=== PATIENT | male | born 1950 | race Caucasian/White ===

== ENCOUNTER 2016-10-31 19:14 | Emergency (ER) | payer BC ==
[~2016-10-31] VITALS: Ht 180.3 cm; Wt 86.2 kg
[~2016-10-31 19:14] MED LIST: ASPIRIN CHEWABL81 MG PO; CLARITIN10 MG PO; Carafate1 GM PO; PERCOCET 325 MG1 TA7 PO; PRILOSEC20 MG PO
[2016-10-31] MEDS ORDERED: LISINOPRIL10 M1 PO (19:20)
[2016-10-31] MEDS ORDERED: NAPROSYN500 MG PO (19:23)
== END 2016-10-31 20:35 | disposition home or self-care (01) ==
LOC: ED 19:14
DX: S90.121A Contusion of right lesser toe(s) without damage to nail, initial encounter (principal); R03.0 Elevated blood-pressure reading, without diagnosis of hypertension; K21.9 Gastro-esophageal reflux disease without esophagitis; E78.5 Hyperlipidemia, unspecified; Z87.442 Personal history of urinary calculi; Z88.0 Allergy status to penicillin; Z79.82 Long term (current) use of aspirin; W22.8XXA Striking against or struck by other objects, initial encounter; Y93.89 Activity, other specified; Y92.9 Unspecified place or not applicable; Y99.9 Unspecified external cause status

== ENCOUNTER → 2018-08-02 | Outpatient (CLI) | payer OTHER ==
[~2018-08-02] MED LIST changes: +LISINOPRIL10 M1 PO; +NAPROSYN500 MG PO
[2018-08-02 08:23] LABS: HEMATOCRIT 43.6 % (42.0-52.0); HEMOGLOBIN 14.2 g/dl (14.0-18.0); MEAN CELL VOLUME 89.9 fl (80.0-94.0); MEAN CORPUSCULAR HGB 29.3 pg (27.0-31.0); MEAN CORPUSCULAR HGB CONC 32.6 g/dl (33.0-37.0); MEAN PLATELET VOLUME 9.3 fl (9.6-12.3); RED BLOOD COUNT 4.85 10*6/uL (4.50-5.90); RED CELL DISTRI WIDTH 13.2 % (0-14.5); WHITE BLOOD COUNT 7.5 10*3/uL (4.8-10.8)
[2018-08-02 08:36] LABS: ALBUMIN 3.7 gm/dl (3.1-4.5); BUN 15 mg/dl (7-24); CHLORIDE 104 mmol/L (98-107); CHOLESTEROL 224 mg/dL (<200); CREATININE 0.97 mg/dL (0.70-1.30); POTASSIUM 4.1 mmol/L (3.5-5.1); SGOT/AST 23 IU/L (3-35); SGPT/ALT 28 U/L (12-78); SODIUM 139 mmol/L (136-145); TOTAL PROTEIN 8.1 gm/dL (6.4-8.2); TRIGLYCERIDES 60 mg/dl (<150); VLDL CHOLESTEROL 12 mg/dL (6-40)
[2018-08-02 08:37] LABS: ALKALINE PHOSPHATASE 106 U/L (45-117); HDL CHOLESTEROL 45 mg/dl (40-60); LDL CHOLESTEROL 167 mg/dL (9-159)
== END | disposition home or self-care (01) ==
LOC: LAB 07:25
PROVIDERS: Family Medicine
DX: E78.00 Pure hypercholesterolemia, unspecified (principal); E55.9 Vitamin D deficiency, unspecified; R53.83 Other fatigue

== ENCOUNTER 2018-12-23 13:35 | Emergency (ER) | payer OTHER ==
[~2018-12-23] VITALS: Ht 180.3 cm; Wt 88.5 kg
[2018-12-23] MEDS ORDERED: OMNICEF300 MG PO (16:24)
[2018-12-23] MEDS ORDERED: TESSALON PERLE100 M1 PO (16:25)
== END 2018-12-23 16:30 | disposition home or self-care (01) ==
LOC: ED 13:35
DX: J32.9 Chronic sinusitis, unspecified (principal); J06.9 Acute upper respiratory infection, unspecified; E78.5 Hyperlipidemia, unspecified; K21.9 Gastro-esophageal reflux disease without esophagitis; Z88.0 Allergy status to penicillin; Z79.899 Other long term (current) drug therapy; Z87.442 Personal history of urinary calculi

== ENCOUNTER 2019-05-01 09:38 | Emergency (ER) | payer OTHER ==
[~2019-05-01] VITALS: Ht 177.8 cm; Wt 88.5 kg
[~2019-05-01 09:38] MED LIST changes: +OMNICEF300 MG PO; +TESSALON PERLE100 M1 PO
[2019-05-01 10:28] LABS: BASO % 0.3 % (0.0-1.0); EOS # 0.1 10*3/uL (0.0-0.4); EOS % 0.5 % (1.0-4.0); HEMATOCRIT 44.7 % (42.0-52.0); HEMOGLOBIN 14.8 g/dl (14.0-18.0); LYMPH # 0.5 10*3/uL (1.3-4.4); MEAN CELL VOLUME 90.3 fl (80.0-94.0); MEAN CORPUSCULAR HGB 29.9 pg (27.0-31.0); MEAN CORPUSCULAR HGB CONC 33.1 g/dl (33.0-37.0); MEAN PLATELET VOLUME 9.2 fl (9.6-12.3); MONO # 0.4 10*3/uL (0.1-1.0); NEUT # 8.9 10*3/uL (2.3-7.9); PLATELET COUNT AUTOMATED 225 10*3/uL (130-400); RED BLOOD COUNT 4.95 10*6/uL (4.50-5.90); RED CELL DISTRI WIDTH 13.3 % (0-14.5); WHITE BLOOD COUNT 9.9 10*3/uL (4.8-10.8)
[2019-05-01 10:39] LABS: ACT PARTIAL THROMBO TIME 24.5 SECONDS (20.0-32.1); INTERNATIONAL NORM RATIO 0.9 (2.0-3.5)
[2019-05-01 10:45] LABS: ALBUMIN 3.9 gm/dl (3.1-4.5); ALKALINE PHOSPHATASE 96 U/L (45-117); BUN 13 mg/dl (7-24); CHLORIDE 109 mmol/L (98-107); CREATININE 0.96 mg/dL (0.70-1.30); LIPASE 153 U/L (73-393); SGOT/AST 17 IU/L (3-35); SGPT/ALT 30 U/L (12-78); SODIUM 141 mmol/L (136-145); TOTAL PROTEIN 7.5 gm/dL (6.4-8.2)
[2019-05-01 10:48] LABS: TROPONIN I < 0.015 ng/ml (<0.045)
[2019-05-01 10:51] LABS: BILIRUBIN NEGATIVE (NEGATIVE); BLOOD NEGATIVE (NEGATIVE); CLARITY SL CLOUDY (CLEAR); COLOR YELLOW (YELLOW); GLUCOSE NEGATIVE (NEGATIVE); KETONE NEGATIVE (NEGATIVE); LEUKO ESTERASE NEGATIVE (NEGATIVE); NITRITE NEGATIVE (NEGATIVE); PH 5.5 (5.0-9.0); SPECIFIC GRAVITY >= 1.030 (1.005-1.030); UROBILINOGEN 0.2 E.U./dl (0.2-1.0)
[2019-05-01 11:05] LABS: BACTERIA 2+
[2019-05-01] MEDS ORDERED: ZOFRAN4 MG PO (11:42)
[2019-05-01] MEDS ORDERED: ZANTAC 150150 MG PO (11:42)
== END 2019-05-01 12:00 | disposition home or self-care (01) ==
LOC: ED 09:38
PROVIDERS: Nurse Practitioner Family
DX: B34.9 Viral infection, unspecified (principal); R11.2 Nausea with vomiting, unspecified; I10 Essential (primary) hypertension; E78.5 Hyperlipidemia, unspecified; Z87.442 Personal history of urinary calculi; Z88.0 Allergy status to penicillin; Z79.899 Other long term (current) drug therapy; Z79.2 Long term (current) use of antibiotics

== ENCOUNTER 2019-05-20 11:03 | Emergency (ER) | payer OTHER ==
[~2019-05-20] VITALS: Ht 180.3 cm; Wt 88.5 kg
[~2019-05-20 11:03] MED LIST changes: +ZANTAC 150150 MG PO; +ZOFRAN4 MG PO
== END 2019-05-20 13:54 | disposition home or self-care (01) ==
LOC: ED 11:03
DX: S01.01XA Laceration without foreign body of scalp, initial encounter (principal); K21.9 Gastro-esophageal reflux disease without esophagitis; Z79.899 Other long term (current) drug therapy; Z88.0 Allergy status to penicillin; W22.8XXA Striking against or struck by other objects, initial encounter; Y93.89 Activity, other specified; Y92.89 Other specified places as the place of occurrence of the external cause; Y99.8 Other external cause status

== ENCOUNTER 2019-07-05 12:15 | Emergency (ER) | payer OTHER ==
[~2019-07-05] VITALS: Ht 182.8 cm; Wt 88.5 kg
[2019-07-05 13:10] LABS: HEMATOCRIT 44.7 % (42.0-52.0); HEMOGLOBIN 14.9 g/dl (14.0-18.0); MEAN CELL VOLUME 90.5 fl (80.0-94.0); MEAN CORPUSCULAR HGB 30.2 pg (27.0-31.0); MEAN CORPUSCULAR HGB CONC 33.3 g/dl (33.0-37.0); MEAN PLATELET VOLUME 8.9 fl (9.6-12.3); PLATELET COUNT AUTOMATED 188 10*3/uL (130-400); RED BLOOD COUNT 4.94 10*6/uL (4.50-5.90); RED CELL DISTRI WIDTH 13.4 % (0-14.5); WHITE BLOOD COUNT 9.6 10*3/uL (4.8-10.8)
[2019-07-05 13:24] LABS: ALBUMIN 3.8 gm/dl (3.1-4.5); ALKALINE PHOSPHATASE 95 U/L (45-117); BUN 17 mg/dl (7-24); CHLORIDE 106 mmol/L (98-107); CREATININE 0.96 mg/dL (0.70-1.30); POTASSIUM 4.2 mmol/L (3.5-5.1); SGOT/AST 22 IU/L (3-35); SGPT/ALT 30 U/L (12-78); SODIUM 137 mmol/L (136-145); TOTAL PROTEIN 7.5 gm/dL (6.4-8.2)
[2019-07-05 13:35] LABS: PLATELET SUFFICIENCY NORMAL (NORMAL); TOTAL CELLS COUNTED 100 #CELLS
[2019-07-05 14:08] LABS: CLARITY CLEAR (CLEAR); COLOR YELLOW (YELLOW); GLUCOSE NEGATIVE (NEGATIVE)
[2019-07-05 14:09] LABS: BILIRUBIN NEGATIVE (NEGATIVE); BLOOD 1+ (NEGATIVE); KETONE NEGATIVE (NEGATIVE); LEUKO ESTERASE NEGATIVE (NEGATIVE); NITRITE NEGATIVE (NEGATIVE); SPECIFIC GRAVITY 1.025 (1.005-1.030); UROBILINOGEN 0.2 E.U./dl (0.2-1.0)
[2019-07-05 14:10] LABS: BACTERIA TRACE; EPITHELIAL CELLS 0-2; RBC 0-2 rbc/hpf (0-2); WBC 0-2 wbc/hpf (0-5)
== END 2019-07-05 15:33 | disposition home or self-care (01) ==
LOC: ED 12:15
PROVIDERS: Nurse Practitioner Family
DX: B34.9 Viral infection, unspecified (principal); R10.13 Epigastric pain; K21.9 Gastro-esophageal reflux disease without esophagitis; Z88.0 Allergy status to penicillin; Z79.899 Other long term (current) drug therapy

== ENCOUNTER 2020-04-09 17:55 | Observation (INO) | payer OTHER ==
[~2020-04-09] VITALS: Ht 180.3 cm; Wt 88.5 kg
[2020-04-09 18:03] VITALS: BP 173/94
[2020-04-09 18:18] VITALS: BP 162/86
[2020-04-09 18:29] LABS: BASO # 0.1 10*3/uL (0.0-0.1); BASO % 0.8 % (0.0-1.0); EOS # 0.2 10*3/uL (0.0-0.4); EOS % 3.7 % (1.0-4.0); LYMPH % 30.9 % (27.0-41.0); MEAN CELL VOLUME 90.5 fl (80.0-94.0); MEAN CORPUSCULAR HGB 29.4 pg (27.0-31.0); MEAN CORPUSCULAR HGB CONC 32.4 g/dl (33.0-37.0); MONO # 0.5 10*3/uL (0.1-1.0); MONO % 7.6 % (3.0-9.0); NEUT # 3.7 10*3/uL (2.3-7.9); NEUT % 56.8 % (47.0-73.0); PLATELET COUNT AUTOMATED 201 10*3/uL (130-400); RED BLOOD COUNT 4.53 10*6/uL (4.50-5.90); RED CELL DISTRI WIDTH 13.2 % (0-14.5); WHITE BLOOD COUNT 6.5 10*3/uL (4.8-10.8)
[2020-04-09 18:46] LABS: ALBUMIN 3.6 gm/dl (3.1-4.5); ALKALINE PHOSPHATASE 90 U/L (45-117); BUN 12 mg/dl (7-24); CHLORIDE 108 mmol/L (98-107); CREATININE 0.89 mg/dL (0.70-1.30); POTASSIUM 3.8 mmol/L (3.5-5.1); SGOT/AST 21 IU/L (3-35); SGPT/ALT 24 U/L (12-78); SODIUM 142 mmol/L (136-145)
[2020-04-09 18:47] LABS: TROPONIN I < 0.015 ng/ml (<0.045)
[2020-04-09 19:07] VITALS: BP 158/82
--- NOTE | 2020-04-09 19:18 | NUR ---
PT IS RESTING IN BED WITH CALL LIGHT IN REACH. PT IS WITHOUT DISTRESS.
[2020-04-09] MEDS ORDERED: OMEPRAZOLE MAGN20 MG PO (20:12)
[2020-04-09 21:00] VITALS: BP 144/70
[2020-04-10 00:13] VITALS: BP 158/96
--- NOTE | 2020-04-10 03:30 | NUR ---
PT C/O HIS CHEST BURNING AT THIS TIME. MONITOR REMAINS SINUS RHYTHM MD COELHO AWARE. OSCAR CRUZ RN.
[2020-04-10 04:15] VITALS: BP 152/96
--- NOTE | 2020-04-10 04:17 | NUR ---
PT STATES THE PAIN IS GONE AT THIS TIME STATES HE IS PAIN FREE. OSCAR CRUZ RN.
[2020-04-10 08:40] VITALS: BP 163/98
--- NOTE | 2020-04-10 08:40 | NUR ---
RESTING IN NO DISTRESS. PAIN CONTROLLED AT THIS TIME.
[2020-04-10] MEDS ORDERED: TOPROL XL25 MG PO (09:01)
[2020-04-10] MEDS ORDERED: ZOCOR10 MG PO (09:01)
[2020-04-10 09:09] LABS: CHOLESTEROL 237 mg/dL (<200); HDL CHOLESTEROL 67 mg/dl (40-60); LDL CHOLESTEROL 147 mg/dL (9-159); TRIGLYCERIDES 114 mg/dl (<150); VLDL CHOLESTEROL 23 mg/dL (6-40)
--- NOTE | 2020-04-10 10:40 | NUR ---
PT OUT OF DEPARTMENT FOR STRESS TEST.
--- NOTE | 2020-04-10 12:00 | NUR ---
INFORMED CONSENT SIGNED FOR CARDIOLYTE STRESS TEST WITH DR. ANN. RESTING EKG NSR, HR 76, BP 140/84. COMPLETED 6:00 OF A STANDARD KISHORE PROTOCOL COMPLETING 3:00 STAGE II, 2. MPH/12% GRADE. PEAK HEART RATE OF 143 ACIEVED WHICH IS 93% PREDICTED MAXIMUM AND A PEAK BP OF 182/74. TEST TERMINATED D/T FATIGUE. PVC'S NOTED WITH NON DIAGNOSTIC ST CHANGES. HAS AN AVERAGE EXERCISE TOLERANCE. LAST RECOVERY HR 100, BP 162/88. WAITING NUCLAR SCANNING IN STABLE CONDITION.
--- NOTE | 2020-04-10 14:05 | NUR ---
NEGATIVE STRESS TESTS RESULTS DISCUSSED WITH DR JOHNSON. HE CAN BE DISCHARGED HOME AT THIS TIME.
== END 2020-04-10 17:35 | disposition home or self-care (01) ==
LOC: ED 17:55 → EDHOLD 19:59 → 4E 22:14 → EDHOLD 22:14 → 4E 22:14 → EDHOLD 04-10 17:35
PROVIDERS: Nurse Practitioner; ADMIT Internal Medicine; ATTEND Internal Medicine
DX: R07.89 Other chest pain (principal); I10 Essential (primary) hypertension; E78.5 Hyperlipidemia, unspecified

== ENCOUNTER 2020-10-14 13:25 | Emergency (ER) | payer OTHER ==
[~2020-10-14 13:25] MED LIST changes: +OMEPRAZOLE MAGN20 MG PO; +TOPROL XL25 MG PO; +ZOCOR10 MG PO
[2020-10-14] MEDS ORDERED: CEPHALEXIN500 M1 PO (16:36)
== END 2020-10-14 16:36 | disposition home or self-care (01) ==
LOC: ED 13:25
DX: S01.01XA Laceration without foreign body of scalp, initial encounter (principal); Z88.0 Allergy status to penicillin; Z79.899 Other long term (current) drug therapy; Z98.890 Other specified postprocedural states; W22.8XXA Striking against or struck by other objects, initial encounter; Y93.89 Activity, other specified; Y92.89 Other specified places as the place of occurrence of the external cause; Y99.8 Other external cause status

== ENCOUNTER 2021-03-31 14:43 | Emergency (ER) | payer OTHER ==
[~2021-03-31] VITALS: Ht 180.3 cm; Wt 88.5 kg
[~2021-03-31 14:43] MED LIST changes: +CEPHALEXIN500 M1 PO
== END 2021-03-31 22:41 | disposition home or self-care (01) ==
LOC: ED 14:43
DX: U07.1 COVID-19 (principal); Z88.0 Allergy status to penicillin; Z79.899 Other long term (current) drug therapy

== ENCOUNTER → 2022-03-24 | Outpatient (CLI) | payer OTHER | LOC: RAD 17:19 | PROVIDERS: ATTEND Chiropractor | DX: M50.323 Other cervical disc degeneration at C6-C7 level (principal); M50.322 Other cervical disc degeneration at C5-C6 level ==

== ENCOUNTER → 2022-05-25 | Outpatient (CLI) | payer OTHER ==
[2022-05-25 14:56] LABS: HEMATOCRIT 42.3 % (42.0-52.0); MEAN CELL VOLUME 89.4 fl (80.0-94.0); MEAN CORPUSCULAR HGB CONC 33.6 g/dl (33.0-37.0); MEAN PLATELET VOLUME 9.7 fl (9.6-12.3); RED BLOOD COUNT 4.73 10*6/uL (4.50-5.90); RED CELL DISTRI WIDTH 13.3 % (0-14.5); WHITE BLOOD COUNT 7.4 10*3/uL (4.8-10.8)
[2022-05-25 15:22] LABS: ALKALINE PHOSPHATASE 103 U/L (46-116); BUN 11 mg/dl (9-23); CHLORIDE 101 mmol/L (98-107); CHOLESTEROL 214 mg/dL (<200); LDL CHOLESTEROL 139 mg/dL (9-159); POTASSIUM 4.2 mmol/L (3.4-5.1); SGPT/ALT 14 U/L (10-49); TOTAL PROTEIN 7.3 gm/dL (6.0-8.0); TRIGLYCERIDES 90 mg/dl (<150)
== END | disposition home or self-care (01) ==
LOC: LAB 12:48
PROVIDERS: ATTEND Family Medicine
DX: M47.814 Spondylosis without myelopathy or radiculopathy, thoracic region (principal); M85.88 Other specified disorders of bone density and structure, other site; J18.9 Pneumonia, unspecified organism; R50.9 Fever, unspecified; I10 Essential (primary) hypertension; E78.00 Pure hypercholesterolemia, unspecified

== ENCOUNTER 2023-01-25 12:43 | Emergency (ER) | payer OTHER ==
[~2023-01-25] VITALS: Ht 180.3 cm; Wt 86.2 kg
[2023-01-25] MEDS ORDERED: VIBRAMYCIN100 MG PO (14:28)
== END 2023-01-25 14:34 | disposition home or self-care (01) ==
LOC: ED 12:43
DX: S61.011A Laceration without foreign body of right thumb without damage to nail, initial encounter (principal); Z88.0 Allergy status to penicillin; Z98.890 Other specified postprocedural states; Z87.442 Personal history of urinary calculi; W27.0XXA Contact with workbench tool, initial encounter; Y93.89 Activity, other specified; Y92.89 Other specified places as the place of occurrence of the external cause; Y99.8 Other external cause status

== ENCOUNTER 2023-07-16 16:15 | Emergency (ER) | payer OTHER ==
[~2023-07-16] VITALS: Ht 180.3 cm; Wt 86.2 kg
[~2023-07-16 16:15] MED LIST changes: +VIBRAMYCIN100 MG PO
[2023-07-16] MEDS ORDERED: AVPAK AZITHROM250 M1 PO (16:33)
== END 2023-07-16 16:37 | disposition home or self-care (01) ==
LOC: ED 16:15
DX: J32.9 Chronic sinusitis, unspecified (principal); I10 Essential (primary) hypertension; K21.9 Gastro-esophageal reflux disease without esophagitis; E78.5 Hyperlipidemia, unspecified; Z88.0 Allergy status to penicillin; Z98.890 Other specified postprocedural states

== ENCOUNTER 2023-09-01 14:21 | Emergency (ER) | payer MEDICARE ==
[~2023-09-01] VITALS: Wt 86.2 kg
[~2023-09-01 14:21] MED LIST changes: +AVPAK AZITHROM250 M1 PO
[2023-09-01] MEDS ORDERED: Lidocaine Hydrochloride 2% 10 ML AMP SC ONE (14:55)
[2023-09-01] MEDS ORDERED: Bacitracin Zinc 14 GM TUBE T ONE (14:55)
[2023-09-01] MEDS ORDERED: CEPHALEXIN500 M1 PO (16:34)
[2023-09-01] MEDS ORDERED: CEPHALEXIN 500 MG CAP PO ONE (17:35)
== END 2023-09-01 17:35 | disposition home or self-care (01) ==
LOC: ED 14:21
DX: S61.210A Laceration without foreign body of right index finger without damage to nail, initial encounter (principal); S61.212A Laceration without foreign body of right middle finger without damage to nail, initial encounter; K21.9 Gastro-esophageal reflux disease without esophagitis; I10 Essential (primary) hypertension; Z88.0 Allergy status to penicillin; Z98.890 Other specified postprocedural states; Z87.442 Personal history of urinary calculi; W27.0XXA Contact with workbench tool, initial encounter; Y93.89 Activity, other specified; Y92.89 Other specified places as the place of occurrence of the external cause; Y99.0 Civilian activity done for income or pay

== ENCOUNTER → 2023-09-10 | Outpatient (CLI) | payer MEDICARE | LOC: ORTHO 03:24 | PROVIDERS: ATTEND Orthopaedic Surgery | DX: S62.650D Nondisplaced fracture of middle phalanx of right index finger, subsequent encounter for fracture with routine healing (principal); X58.XXXD Exposure to other specified factors, subsequent encounter ==

== ENCOUNTER → 2023-09-24 | Outpatient (CLI) | payer MEDICARE | END | disposition home or self-care (01) | LOC: ORTHO 03:09 | PROVIDERS: ATTEND Orthopaedic Surgery | DX: S62.650D Nondisplaced fracture of middle phalanx of right index finger, subsequent encounter for fracture with routine healing (principal); R60.0 Localized edema; M85.821 Other specified disorders of bone density and structure, right upper arm; M86.8X2 Other osteomyelitis, upper arm; X58.XXXD Exposure to other specified factors, subsequent encounter ==

== ENCOUNTER → 2023-11-03 | Outpatient (CLI) | payer MEDICARE | END | disposition home or self-care (01) | LOC: ORTHO 09:02 | PROVIDERS: ATTEND Orthopaedic Surgery | DX: M19.041 Primary osteoarthritis, right hand (principal); M79.89 Other specified soft tissue disorders; M85.841 Other specified disorders of bone density and structure, right hand ==

== ENCOUNTER 2024-01-27 15:16 | Emergency (ER) | payer MEDICARE ==
[~2024-01-27] VITALS: Wt 86.2 kg
[2024-01-27] MEDS ORDERED: CEPHALEXIN500 M1 PO (16:18)
== END 2024-01-27 16:30 | disposition home or self-care (01) ==
LOC: ED 15:16
DX: L81.9 Disorder of pigmentation, unspecified (principal); K21.9 Gastro-esophageal reflux disease without esophagitis; Z87.442 Personal history of urinary calculi; Z88.0 Allergy status to penicillin; Z98.890 Other specified postprocedural states